=== PATIENT | female | born 1960 | race Caucasian/White ===

== ENCOUNTER 2021-05-17 08:52 | Emergency (ER) | payer OTHER ==
[~2021-05-17] VITALS: Ht 160 cm; Wt 65.0 kg
[2021-05-17] MEDS ORDERED: DIAZEPAM 5 MG TABLET PO ONE ×2 (09:00→11:30)
[2021-05-17] MEDS ORDERED: KETOROLAC 60MG/2ML VIAL IM ONE (09:15)
[2021-05-17 10:18] VITALS: BP 140/80
[2021-05-17] MEDS ORDERED: METH-773 MT (12:38)
[2021-05-17] MEDS ORDERED: IBUP-2029 MT (12:38)
== END 2021-05-17 13:13 | disposition home or self-care (01) ==
LOC: ER 08:52
DX: M54.12 Radiculopathy, cervical region (principal); M25.512 Pain in left shoulder
CPT/HCPCS: 72050; 73030; 96372; 99284; J1885